=== PATIENT | male | born 1950 | race Caucasian/White ===

== ENCOUNTER 2022-11-06 15:22 | Observation (INO) | payer OTHER, SELFPAY ==
[2022-11-06] VITALS (11 sets, daily range): BP systolic 83–99; BP diastolic 57–67; PULSE 69–90; RESP 12–18; TEMP 36.3–36.8; O2SAT 98–100; BMI 24.0
--- NOTE | 2022-11-06 15:35 | W.ED.GENADLT ---
HPI - General Adult General: Chief complaint: General Medical Stated complaint: hypotension Time Seen by Provider: 11/06/22 15:24 Source: EMS Mode of arrival: EMS History of Present Illness: History is of limited to that which is obtained from EMS and [facility]. Allegedly the patient is on hospice. He apparently also gets daily medications for blood pressure and fluid control. He apparently had a systolic blood pressure in the 105 range earlier today and was subsequently given his usual medications and had a blood pressure taken later on the day which was in the 80-90 systolic range and EMS was notified. He was transported to the emergency department. No history is obtained from the patient at this time. I was able to place a call to the long-term care facility and staff there were able to provide additional illuminating information. They state that he is normally pretty functional and active and they are unsure actually why he is on hospice status as he remains a full code. They state that he has had a number of falls over the past week or more and they are uncertain whether he is hit his head but he has not had any changes up until the last 24 hours when he has had decreased mental status in terms of responsiveness, oral intake. His who rooms with him noted that he had changed and contacted her and his family who recommended and requested that he be transported to the emergency department for further evaluation. There is no history of fevers or other additional information at this time. Review of Systems General: Reports: ROS unobtainable due to medical condition Physical Exam Narrative: EXAM NARRATIVE: Patient will open eyes to voice and answer simple questions with yes or no and a very faint voice. He appears to be in no acute distress. 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) Resp: COMMON NORMALS: normal respiratory effort, No retractions, No use of accessory muscles and clear to auscultation bilaterally AUSCULTATION: clear to auscultation bilaterally and diminished lung sounds Cardio: COMMON NORMALS: no JVD, regular rate, regular rhythm and No murmurs present (Cardio) RATE: regular rate RHYTHM: regular rhythm GI: COMMON NORMALS: Normal to inspection, nondistended, normoactive bowel sounds present, Soft to palpation and non-tender PALPATION: Yes Soft to palpation Back/Pelvis: COMMON NORMALS: thoracic and lumbar spine normal to inspection Extremity: COMMON NORMALS: normal to inspection, full ROM, capillary refill normal and no pedal edema Neuro: SENSORIUM/ORIENTATION: Yes alert Skin: COMMON NORMALS: no rashes or lesions noted, no wounds and turgor normal GENERAL SKIN EXAM: no rashes or lesions noted and turgor normal Course Reevaluation(s): Reevaluation #1: Patient's received a liter of fluids and is more alert and responsive. He has started drinking on his own. Also noted that he has had some purulent sputum produced since our last evaluation however he has no evidence of respiratory difficulty but he does have diminished breath sounds at the bases. Time: 18:28 Consultations: Consultation #1: Discussed with Dr. Gonzalez who will see him in the emergency department Time: 19:13 Vital Signs: Vital signs: Vital Signs Temperature 98.2 F 11/06/22 15:27 Pulse Rate 71 11/06/22 19:42 Respiratory Rate 12 11/06/22 19:42 Blood Pressure 92/64 11/06/22 19:42 Pulse Oximetry 100 11/06/22 19:42 Oxygen Delivery Me thod Room Air 11/06/22 15:32 MDM - General Adult Medical Decision Making This patient was transported to our emergency department .From [facility]. Initially we had very limited history that he the initial history was that he was on hospice but was a full code and has had decreased decreased activity over the past day or so. Subsequently a conversation was had with [facility] facility staff who reported that he was normally very vigorous and active and interactive and over the past 2 to 3 days he has become less so and more so even today. There is also a history that suggested he had a couple of ground-level falls with possible head injury. He does have a history of heart failure by chart review but we have no past records within our system to collaborate any of his history. On initial presentation he appeared to be very dry he would respond to loud voice with eye opening with minimal verbalization. Medical exam reveals some decreased skin turgor and deep diminished breath sounds but no other focal findings. Because of his history a work-up ensued broadened after additional history was obtained. Imaging did not reveal any evidence of intracranial hemorrhage or other acute intracranial process. Chest x-ray was reassuring without any evidence of infiltrative process. Laboratories began to return and were notable for significant BUN/creatinine ratio consistent with acute kidney injury however no previous creatinines were available for comparison. He received the benefit of fluid resuscitation while additional studies pending. After liter of fluids he was reexamined still was very soft on his systolic blood pressure but had increasing responsiveness to voice and interacted and is able to start drinking on his own. Certainly patient's had significant volume depletion of unclear etiology although he does take diuretics and antihypertensives on his regimen from the long-term [facility] facility and its unclear as to his oral intake over the past number of days. At this point time does not appear to have any evidence of infection, his rhythm is paced and he does not have any other suggestion of other acute process at this time. He will need to be placed in inpatient status for continued hydration and reevaluation. Hospitalist was able to find additional information that letter she had of the light on the case. Apparently the patient has a history of chronic kidney disease and his current presentation may be a natural progression of his disease. Lab Data I reviewed the patient's lab results. 11/06/22 15:05 11/06/22 15:[address] 11/06/22 15:48 IMPRESSION: No acute intracranial abnormality. Chronic microvascular ischemic changes. Chest X-Ray 11/06/22 16:49 IMPRESSION: No acute findings. Intact appearing pacemaker/AICD hardware. Laboratory Results WBC 6.70 10^3/uL (3.29-11.43) 11/06/22 15:05 RBC 4.64 10^6/uL (3.85-5.65) 11/06/22 15:05 Hgb 12.90 g/dL (11.27-16.99) 11/06/22 15:05 Hct 39.1 % (37-53) 11/06/22 15:05 MCV 84.3 fl (82-101) 11/06/22 15:05 MCH 27.8 pg (27-33) 11/06/22 15:05 MCHC 33.0 g/dL (30-55) 11/06/22 15:05 RDW 17.7 % (12.1-15.1) H 11/06/22 15:05 Plt Count 269 10^3/cmm (157-399) 11/06/22 15:05 MPV 9.2 fL (7.4-10.4) 11/06/22 15:05 Neut % (Auto) 73.9 % 11/06/22 15:05 Lymph % (Auto) 6.3 % 11/06/22 15:05 [place] % (Auto) 15.1 % 11/06/22 15:05 Eos % (Auto) 3.6 % 11/06/22 15:05 Baso % (Auto) 0.7 % 11/06/22 15:05 Neut # (Auto) 4.95 10^3/uL (1.8-7.7) 11/06/22 15:05 Lymph # (Auto) 0.4 10^3/uL (0.8-4.8) L 11/06/22 15:05 [place]idan # (Auto) 1.0 10^3/uL (0.2-0.9) H 11/06/22 15:05 Eos # (Auto) 0.2 10^3/uL (0.0-0.8) 11/06/22 15:05 Baso # (Auto) 0.1 10^3/uL (0.0-0.1) 11/06/22 15:05 Nucleated RBC % (auto) 0 % 11/06/22 15:05 Nucleated RBCs # 0.0 /100WBC 11/06/22 15:05 Sodium 135 mmol/L (136-145) L 11/06/22 15:05 Potassium 5.5 mmol/L (3.5-5.1) H 11/06/22 15:05 Chloride 98 mmol/L (98-107) 11/06/22 15:05 Carbon Dioxide 16 mmol/L (22-29) L 11/06/22 15:05 Anion Gap 26.5 (5-19) H 11/06/22 15:05 BUN 102 mg/dL (8-23) H* 11/06/22 15:05 Creatinine 5.7 mg/dL (0.7-1.2) H* 11/06/22 15:05 GFR Calculation Not Reportable 11/06/22 15:05 Glucose 73 mg/dL (65-115) 11/06/22 15:05 Calculated Osmolality 310 mOsm/kg (285-295) H 11/06/22 15:05 Calcium 10.8 mg/dL (8.5-10.5) H 11/06/22 15:05 Magnesium 2.2 mg/dL (1.7-2.3) 11/06/22 15:05 Ammonia 10 umol/L (16-60) L 11/06/22 17:07 Urine Color Yuli (Yellow) 11/06/22 17:19 Urine Appearance Clear (CLEAR) 11/06/22 17:19 Urine pH 5 (5-7) 11/06/22 17:19 Ur Specific [place] 1.020 (1.005-1.030) 11/06/22 17:19 Urine Protein 1+ (Negative) H 11/06/22 17:19 Urine Glucose (UA) Norm (Normal) 11/06/22 17:19 Urine Ketones 1+ (Negative) H 11/06/22 17:19 Urine Blood 2+ (Negative) H 11/06/22 17:19 Urine Nitrate Negative (Negative) 11/06/22 17:19 Urine Bilirubin 1+ (Negative) H 11/06/22 17:19 Urine Urobilinogen 1 mg/dL (Negative) H 11/06/22 17:19 Ur Leukocyte Esterase Negative (Negative) 11/06/22 17:19 Urine RBC Rare /hpf (0-2) 11/06/22 17:19 Urine WBC Rare /hpf (0-5) 11/06/22 17:19 Ur Squamous Epith Cells 5-10 /hpf (0-5) H 11/06/22 17:19 Amorphous Sediment Not Reportable 11/06/22 17:19 Urine Bacteria Trace /hpf (NONE) 11/06/22 17:19 Salicylates 1.1 mg/dL (3-10) L 11/06/22 15:05 Acetaminophen < 5.0 ug/mL (10-30) L 11/06/22 15:05 Ethyl Alcohol < 10 mg/dL (0-10) 11/06/22 15:05 All radiology interpretation(s) finalized by discharge Discharge Plan Discharge Patient Disposition: Admitted As Inpatient Clinical Impression: Acute kidney injury, Depletion of volume of plasma, CKD (chronic kidney disease) Condition: Stable Coding Level of Care Code ED Safety And Security Officer for Pilar Jordan
[2022-11-06 15:46] LABS: Basophils # 0.1 10^3/uL (0.0-0.1); Basophils % 0.7 %; Eosinophils # 0.2 10^3/uL (0.0-0.8); Eosinophils % 3.6 %; Hematocrit 39.1 % (37-53); Lymphocytes # 0.4 10^3/uL (0.8-4.8); Lymphocytes % 6.3 %; Mean Corpuscular Hemoglobin 27.8 pg (27-33); Mean Corpuscular Volume 84.3 fl (82-101); Mean Platelet Volume 9.2 fL (7.4-10.4); Monocytes % 15.1 %; Neutrophils # 4.95 10^3/uL (1.8-7.7); Neutrophils % 73.9 %; Nucleated Red Blood Cells % 0 %; Platelet Count 269 10^3/cmm (157-399); Red Blood Count 4.64 10^6/uL (3.85-5.65); Red Cell Distribution Width 17.7 % (12.1-15.1)
--- NOTE | 2022-11-06 15:48 | CTR_ITS ---
PROCEDURE INFORMATION: Exam: CT Head Without Contrast Exam date and time: 11/06/2022 3:58 PM Age: 72 years old Clinical indication: Altered mental status/memory loss; Confusion or disorientation; Additional info: AMS TECHNIQUE: Imaging protocol: Computed tomography of the head without contrast. Radiation optimization: All CT scans at this facility use at least one of these dose optimization techniques: automated exposure control; mA and/or kV adjustment per patient size (includes targeted exams where dose is matched to clinical indication); or iterative reconstruction. REPORTING DATA: Count of CT and Cardiac NM exams in prior 12 months: This patient has received 0 known CTs and 0 known cardiac nuclear medicine studies in the 12 months prior to the current study. COMPARISON: No relevant prior studies available. RADIATION DOSE METRICS: Total DLP (mGy-cm): 1097.38 FINDINGS: Brain: Encephalomalacia in the left frontal lobe.There are mild periventricular and subcortical lucencies consistent with chronic microvascular ischemic changes.The higuera-white differentiation is maintained. No hemorrhage. No edema. Cerebral ventricles: No ventriculomegaly. Paranasal sinuses: Visualized sinuses are unremarkable. No fluid levels. Mastoid air cells: Visualized mastoid air cells are well aerated. Orbital cavities: Bilateral cataract surgery. Bones/joints: Unremarkable. No acute fracture. Soft tissues: Unremarkable. CT/CT head wo con* [id number] IMPRESSION: No acute intracranial abnormality. Chronic microvascular ischemic changes.
--- NOTE | 2022-11-06 15:58 | PC.PHAR ---
ATTEMPTED TO GET MAR AND TAR FROM [facility] WHO STATED THE DOCTOR ALREADY HAD THE LIST AND THEY WENT OVER SOME OF THE MEDICATIONS. PAPERWORK NOT IN CHART OR IN ROOM WITH PT.
[2022-11-06 16:06] LABS: Anion Gap 26.5 (5-19); Calcium 10.8 mg/dL (8.5-10.5); Carbon Dioxide 16 mmol/L (22-29); Chloride 98 mmol/L (98-107); Glucose 73 mg/dL (65-115); Magnesium 2.2 mg/dL (1.7-2.3); Osmolality Calculated 310 mOsm/kg (285-295); Potassium 5.5 mmol/L (3.5-5.1); Sodium 135 mmol/L (136-145)
[2022-11-06 16:11] LABS: Blood Urea Nitrogen 102 mg/dL (8-23)
--- NOTE | 2022-11-06 16:49 | XRR_ITS ---
PROCEDURE INFORMATION: Exam: XR Chest Exam date and time: 11/06/2022 4:56 PM Age: 72 years old Clinical indication: Cough and dyspnea; Prior surgery; Surgery date: 6+ months; Surgery type: Pacemaker; Additional info: AMS TECHNIQUE: Imaging protocol: Radiologic exam of the chest. Views: 1 view. COMPARISON: No relevant prior studies available. FINDINGS: Tubes, catheters and devices: There is intact pacemaker/AICD hardware. Lungs: Unremarkable. No consolidation. Pleural spaces: Unremarkable. No pleural effusion. No pneumothorax. Heart/Mediastinum: Unremarkable. No cardiomegaly. Bones/joints: Unremarkable. XR/XR chest 1V portable [id number] IMPRESSION: No acute findings. Intact appearing pacemaker/AICD hardware.
[2022-11-06 17:13] LABS: Salicylate 1.1 mg/dL (3-10)
[2022-11-06 17:16] LABS: Acetaminophen < 5.0 ug/mL (10-30); Alcohol Level < 10 mg/dL (0-10)
[2022-11-06 17:33] LABS: Ammonia 10 umol/L (16-60)
[2022-11-06 18:18] LABS: Add Urine Microscopic? YES; Bacteria Urine TRACE /hpf; Bilirubin Urine 1+ (Negative); Blood Urine 2+ (Negative); Glucose Urine UA Norm (Normal); Ketones Urine 1+ (Negative); Leukocyte Esterase Urine Negative (Negative); Nitrate Urine Negative (Negative); Protein Urine 1+ (Negative); RBC Urine RARE /hpf (0-2); Urine Appearance Clear (CLEAR); Urine Color Amber (Yellow); Urobilinogen Urine 1 mg/dL (Negative); WBC Urine RARE /hpf (0-5); pH Urine 5 (5-7)
[2022-11-06 18:19] LABS: Add Urine Culture? No
[2022-11-06] MEDS: sodium chloride 0.9% 1,000 ML 999 ML IV (18:43)
--- NOTE | 2022-11-06 19:18 | ECG_ITS ---
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 Measurements Intervals [place] Rate: 69 P: 0 [place]: 0 QRS: -90 QRSD: 261 T: 99 QT: 619 QTc: 667 Interpretive Statements ELECTRONIC VENTRICULAR PACEMAKER PROLONGED QT INTERVAL No previous ECG available for comparison Electronically Signed On 11-07-2022 9:38:11 CDT by Antonio Giordano M.D. [email or web address]
--- NOTE | 2022-11-06 19:36 | CTR_ITS ---
PROCEDURE INFORMATION: Exam: CT Chest Without Contrast; Diagnostic Exam date and time: 11/06/2022 7:53 PM Age: 72 years old Clinical indication: Other: Marcus; Dyspnea and wheezing; Prior surgery; Surgery date: 6+ months; Surgery type: Pacemaker, gb; Additional info: Marcus, labored breathing, wheezing TECHNIQUE: Imaging protocol: Diagnostic computed tomography of the chest without contrast. Radiation optimization: All CT scans at this facility use at least one of these dose optimization techniques: automated exposure control; mA and/or kV adjustment per patient size (includes targeted exams where dose is matched to clinical indication); or iterative reconstruction. REPORTING DATA: Count of CT and Cardiac NM exams in prior 12 months: This patient has received 0 known CTs and 0 known cardiac nuclear medicine studies in the 12 months prior to the current study. COMPARISON: CR (CHEST, ) 11/06/2022 4:56 PM RADIATION DOSE METRICS: Total DLP (mGy-cm): 0.01 FINDINGS: Tubes, catheters and devices: Right-sided pacemaker. Lungs: Bibasilar left greater than right atelectasis versus infiltrate. Emphysematous changes. Pleural spaces: Unremarkable. No pneumothorax. No pleural effusion. Heart: Cardiomegaly. Coronary arteries: Coronary artery atherosclerotic calcifications. Lymph nodes: Enlarged mediastinal lymph nodes measuring up to 17 mm. Vasculature: Unremarkable. No aortic aneurysm. Bones/joints: Unremarkable. No acute fracture. Soft tissues: Unremarkable. COMMENTS: In the absence of a history or active diagnosis of lung cancer, it is recommended that this patient with emphysema be evaluated for enrollment in a low dose CT lung cancer screening program. PROCEDURE INFORMATION: Exam: CT Abdomen And Pelvis Without Contrast Exam date and time: 11/06/2022 7:53 PM Age: 72 years old Clinical indication: Other: Marcus; Dyspnea and wheezing; Prior surgery; Surgery date: 6+ months; Surgery type: Pacemaker, gb; Additional info: Marcus, labored breathing, wheezing TECHNIQUE: Imaging protocol: Computed tomography of the abdomen and pelvis without contrast. Radiation optimization: All CT scans at this facility use at least one of these dose optimization techniques: automated exposure control; mA and/or kV adjustment per patient size (includes targeted exams where dose is matched to clinical indication); or iterative reconstruction. REPORTING DATA: Count of CT and Cardiac NM exams in prior 12 months: This patient has received 0 known CTs and 0 known cardiac nuclear medicine studies in the 12 months prior to the current study. COMPARISON: CR (CHEST, ) 11/06/2022 4:56 PM RADIATION DOSE METRICS: Total DLP (mGy-cm): 1063.28 FINDINGS: Liver: Normal. No mass. Gallbladder and bile ducts: Cholecystectomy. Pancreas: Normal. No ductal dilation. Spleen: Normal. No splenomegaly. Adrenal glands: Normal. No mass. Kidneys and ureters: Normal. No hydronephrosis. Stomach and bowel: Constipation. Diverticulosis without diverticulitis. Appendix: No evidence of appendicitis. Intraperitoneal space: Unremarkable. No free air. No significant fluid collection. Vasculature: Unremarkable. No abdominal aortic aneurysm. Lymph nodes: Unremarkable. No enlarged lymph nodes. Urinary bladder: Salas catheter in the urinary bladder with air presumed iatrogenic. Reproductive: Prostate gland enlarged. Bones/joints: Unremarkable. No acute fracture. Soft tissues: Small to moderate umbilical hernia containing omentum without bowel. CT/[place] [id number] IMPRESSION: 1. Bibasilar left greater than right atelectasis versus infiltrate. 2. Right-sided pacemaker. 3. Coronary artery atherosclerotic calcifications. 4. Enlarged mediastinal lymph nodes measuring up to 17 mm. 5. Cardiomegaly. 6. Emphysematous changes. IMPRESSION: 1. Negative for focal acute inflammatory process in the abdomen or pelvis. 2. Cholecystectomy. 3. Constipation. 4. Small to moderate umbilical hernia containing omentum without bowel. 5. Diverticulosis without diverticulitis. 6. Salas catheter in the urinary bladder with air presumed iatrogenic. 7. Prostate gland enlarged.
[2022-11-06] MEDS: sodium chloride 0.9% 1,000 ML 75 ML IV (20:06)
--- NOTE | 2022-11-06 20:11 | PM.HP ---
Providers/Chief Complaint Chief Complaint: hypotension History of Present Illness Mitesh Wing is a 72 year old male with a past medical history of end-stage heart failure, CKD stage IV, CVA with dysphagia, CAD, atrial fibrillation, currently on hospice at [facility] residential, currently patient alert to person, to place, not to time he can follow commands but is a bit confused. When asked him why he is here to the hospital he tells me he is not sure, he denies any complaints, no headache, no blurry vision, no nausea, vomiting, abdominal pain he is thirsty he tells me, he has had a poor appetite he has lost weight but is not exactly sure how much, he denies passing out, but did fall about a week ago, is not exactly sure of the circumstances surrounding his fall, currently he is blood pressure was 97/64, pulse is 70 respiratory rate 14 temperature 98.2 100s on room air, he has received fluid bolus. I was able to speak to [facility], he tells me that patient is normally ambulatory, he does have some mild dementia, but can carry a conversation he lives at [facility] with his who is his roommate who has severe dementia, they tell me that he is not been having a good appetite, his appetite is decreased, he has been losing weight, but what prompted them to send him to the emergency room tonight was he was not acting appropriately, he was looking pale, diaphoretic, and his blood pressures were low. I reviewed his vitals his systolics were in the room the 90s, diastolics were in the 60s, he was not tachycardic, it looks like since August of this year he is lost about 50 pounds. Patient can confirm that he has end-stage renal failure he knows this. He knows that he is end-stage heart failure. I also spoke to patient's daughter, who confirmed that he has end-stage heart failure, he has end-stage kidney failure that over the last few months his condition has been declining, he has been not eating, he had a poor appetite, he said poor oral intake, he has been losing weight. I discussed with patient that currently he has acute renal failure, I do not know his baseline labs, has CKD stage IV for some period of time it could be that the labs that were seeing today are a reflection of his progressive kidney disease, he is possibly progressed to stage V kidney disease. But there might be a component of dehydration, his CPK is over thousand so he has a component of rhabdomyolysis. I discussed options available to patient, including sending [facility] back [facility] the [place] [facility] on his hospice which he is already on for his heart failure and his kidney disease versus a inpatient admission for IV hydration to see if his kidney function improves, and if it does improve, then we can certainly send him back to the residential, if it does not improve then this is likely his underlying chronic kidney disease worsening. Nonetheless patient is adamant he does not want dialysis. I discussed his goals of cares with him, he tells me he is a DNR/DNI, he does not want to have aggressive interventions. I also spoke to patient's healthcare power of patent prosecution attorney Kirti, who confirms that patient is a DNR/DNI and he is never wanted dialysis. I did discuss with patient and his daughter that there is a chance that he might here in the hospital given his low blood pressures, and still working on the etiology could be from dehydration, but if he were to deteriorate here in the hospital, patient and family are okay with making him comfortable easing his pain easing suffering and allow him to pass away comfortably they do not want to have aggressive interventions. However patient did verbalize to me that he wants a trial of fluids, trial of simple measures to see if we can get his kidney function better and his blood pressure is better, but he does not want to have aggressive interventions, he does not want to have life-sustaining measures. Review of Systems Const: Denies: fever(s) Eyes: Denies: change in vision Card: Denies: chest pain Resp: Denies: dyspnea GI: Denies: abdominal pain, nausea or vomiting : Denies: flank pain Musc: Denies: neck pain or back pain Skin/Breast: Denies: rash Neuro: Denies: headache(s), numbness in extremities or weakness in extremities Endo: Denies: polyuria PFSH Acute PFSH: Medical History (Updated 11/06/22 @ 21:09 by Moy Boston MD) Atrial fibrillation CAD (coronary artery disease) CKD (chronic kidney disease) stage 4, GFR 15-29 ml/min CVA (cerebral vascular accident) Dysphagia as late effect of cerebral aneurysm End-stage systolic heart failure History of pacemaker Sick sinus syndrome Surgical History (Updated 11/06/22 @ 20:14 by Moy Boston MD) S/P placement of cardiac pacemaker Family History (Updated 11/06/22 @ 20:14 by Moy Boston MD) Other No pertinent family history Social History (Updated 11/06/22 @ 20:14 by Moy Boston MD) Smoking and tobacco status: never smoked Alcohol intake: never Substance/Drug Use: never Vitals/I&O/Wt Last Vital Signs Temp 98.2 F 11/06/22 15:27 Pulse 71 11/06/22 19:42 Resp 12 11/06/22 19:42 BP 92/64 11/06/22 19:42 Pulse Ox 100 11/06/22 19:42 O2 Del Method Room Air 11/06/22 15:32 11/06/22 11/06/22 11/06/22 06:59 14:59 22:59 Intake Total 1000 / 1000 Balance 1000 / 1000 Weight last 48 hrs Weight 82.554 kg Physical Exam Const: COMMON NORMALS: no acute distress EXAM LIMITATIONS: altered mental status ORIENTATION/CONSCIOUSNESS: Yes awake, Yes oriented to person and Yes oriented to place; not oriented to time HENMT: COMMON NORMALS: normocephalic and Normal external nose present HEAD & SCALP: normocephalic FACE & SINUS: normal facial exam NOSE: Normal external nose present Eye: COMMON NORMALS: Equal, round and reactive pupils present, conjunctivae normal and no scleral icterus CONJUNCTIVA: Yes conjunctivae normal PUPIL: Yes Equal, round and reactive pupils present Neck/C-Spine: COMMON NORMALS: full ROM, no lymphadenopathy and No carotid bruits THYROID: Thyroid normal Lymph: LYMPHATIC: no lymphadenopathy noted Chest: COMMONS NORMALS: normal inspection of the chest Resp: COMMON NORMALS: normal respiratory effort, No retractions and No use of accessory muscles AUSCULTATION: wheezes Cardio: COMMON NORMALS: regular rate, regular rhythm, S1 normal heart sound present, S2 normal heart sound present, No murmurs present (Cardio) and Peripheral pulses 2+ throughout RATE: regular rate RHYTHM: regular rhythm HEART SOUNDS: S1 normal heart sound present and S2 normal heart sound present PERIPHERAL PULSES: Peripheral pulses 2+ throughout GI: COMMON NORMALS: Normal to inspection, nondistended, normoactive bowel sounds present, Soft to palpation and non-tender : BLADDER/KIDNEY EXAM: Yes no CVA tenderness Back/Pelvis: COMMON NORMALS: no CVA tenderness Extremity: COMMON NORMALS: normal to inspection, full ROM, capillary refill normal, no calf tenderness and no pedal edema Neuro: COMMON NORMALS: CN's II-XII intact bilaterally and moves all extremities Psych: COMMON NORMALS: cooperative Sepsis: Focused sepsis exam: dp pt pulses diminished bilaterally, capillary refill>4s, pale extremities Evidence of muscle wasting, temporal muscle wasting, peripheral extremity muscle wasting including bilateral shoulders, arms, bilateral thighs, bilateral calves Data 11/06/22 15:05 11/06/22 15:05 A&P Assessment and plan (1) Dysphagia as late effect of cerebral aneurysm: (2) CAD (coronary artery disease): (3) CVA (cerebral vascular accident): (4) End-stage systolic heart failure: (5) Atrial fibrillation: (6) CKD (chronic kidney disease) stage 4, GFR 15-29 ml/min: (7) Acute kidney injury: (8) Depletion of volume of plasma: (9) CKD (chronic kidney disease): (10) ARF (acute renal failure): (11) Hypotension: (12) Encephalopathy: (13) Hyperkalemia: (14) Uremia: (15) Protein calorie malnutrition: (16) Physical deconditioning: (17) Cachexia: (18) Hospice care patient: (19) Goals of care, counseling/discussion: (20) NSTEMI (non-ST elevated myocardial infarction): Plan Acute renal failure -Has chronic kidney failure stage IV, but this was a few years ago, family is unsure when his last lab results were -His current BUN/creatinine might be his new baseline -But he has had poor appetite, for the last 2 months, last 24 hours he has diminished intake there could be a component of dehydration -IV fluids gently at 75 cc an hour, given his end-stage heart failure -We will get a CPK as he fell a few weeks ago -Monitor urine output -Patient declines dialysis, patient's family Kirti his healthcare power of patent prosecution attorney declines dialysis - if patient's uremia, and creatinine does not improve with IV hydration, patient and family are okay with him going back to the residential on resuming his hospice, or he might need comfort care depending on his clinical progress here in the hospital Uremia -Likely source of confusion -Likely source of poor oral intake, weight loss -IV hydration -Patient declines dialysis Hypotension -Etiology unclear could be from uremia, acute renal failure, dehydration, lactic acid within normal limits -CT chest abdomen pelvis -Lactic acid -Possible second dehydration, IV fluids, midodrine 10 every 8 hours -CRP, Pro-Martin Hypokalemia -Telemetry monitoring -10 units insulin, D50 Metabolic acidosis, secondary to acute on chronic renal failure, IV fluids, p.o. sodium bicarb Of the chest does show bibasilar infiltrates, Pro-Martin 0.69, CRP is over 280, will place on Rocephin and azithromycin Physical deconditioning, protein calorie malnutrition, muscle wasting, likely secondary to acute renal failure, uremia Rhabdomyolysis, CPK 1092, IV fluids NSTEMI, baseline troponin 114, serial EKGs, short ones, telemetry monitoring Hospice patient, DNR/DNI, does not want to have aggressive inventions, wants a trial of IV fluids, trial of antibiotics, to see if his condition improves -Speech therapy eval, dietary eval Goals of care discussion as above Attestations Medical Necessity Statement*: patient requires hospitalization for end-stage renal disease, dialysis, protein calorie malnutrition, physical deconditioning, cachexia, hypotension, encephalopathy, Diagnoses Dysphagia as late effect of cerebral aneurysm I69.891 CAD (coronary artery disease) I25.10 CVA (cerebral vascular accident) I63.9 End-stage systolic heart failure I50.20 Atrial fibrillation I48.91 CKD (chronic kidney disease) stage 4, GFR 15-29 ml/min N18.4 Acute kidney injury N17.9 Depletion of volume of plasma E86.1 CKD (chronic kidney disease) N18.9 ARF (acute renal failure) N17.9 Hypotension I95.9 Encephalopathy G93.40 Hyperkalemia E87.5 Uremia N19 Protein calorie malnutrition E46 Physical deconditioning R53.81 Cachexia R64 Hospice care patient Z51.5 Goals of care, counseling/discussion Z71.89 NSTEMI (non-ST elevated myocardial infarction) I21.4
[2022-11-06 20:20] LABS: Lactic Sepsis W/Reflex 1.2 mmol/L (0.5-2.2)
[2022-11-06 20:26] LABS: Procalcitonin 0.69 ng/mL (0-0.5); Thyroid Stimulating Hormone 0.42 uIU/mL (0.27-4.20)
[2022-11-06 20:34] LABS: Troponin(5th) Baseline 114 ng/L (0-15)
[2022-11-06 20:39] LABS: Alanine Aminotransferase < 5 U/L (0-41); Albumin Level 3.2 g/dL (3.5-5.2); Alkaline Phosphatase 82 U/L (40-130); Aspartate Amino Transferase 27 U/L (0-40); C Reactive Protein 279.6 mg/L (0.0-4.9); Globulin 2.9 g/dL (1.3-4.6); Lipase 23 U/L (13-60); Total Bilirubin 0.8 mg/dL (0.15-1.2); Total Protein 6.1 g/dL (6.6-8.7)
[2022-11-06 20:41] LABS: Creatine Phosphokinase 1092 U/L (39-308)
[2022-11-06 20:48] LABS: NT Pro B Type Natriuretic Pept 43929 pg/mL (0-125)
[2022-11-06 21:28] LABS: Estmated Average Glucose 94; Hemoglobin A1C 4.9 % (4.0-6.0)
[2022-11-06] MEDS: heparin 5,000 unit/mL INJ 1 mL 5000 UNIT SUBCUT (22:40)
[2022-11-06] MEDS: azithromycin 500 MG in sodium chloride 0.9% 250 ML 250 MG IV (22:44)
[2022-11-06] MEDS: dextrose 50% syringe 50 mL IVP (23:28)
[2022-11-06] MEDS: dextrose 5%-sod chloride 0.9% 1,000 ML 100 ML IV (23:28)
[2022-11-06] MEDS: insulin regular-human 100 units/1 mL 10 UNIT IVP (23:31)
[2022-11-07] VITALS (7 sets, daily range): BP systolic 80–97; BP diastolic 55–62; PULSE 69–88; RESP 15–18; TEMP 35.9–36.5; O2SAT 93–100
[2022-11-07] MEDS: cefTRIAXone 1,000 MG in sodium chloride 0.9% (plus) 50 ML 100 MG IV (00:13)
[2022-11-07] MEDS: pantoprazole 40 mg SDV IVP (00:19)
[2022-11-07 00:31] LABS: Glucose Point of Care 141 mg/dL (70-110)
[2022-11-07] MEDS: sodium chloride 0.9% 500 ML 999 ML IV (00:44)
[2022-11-07] MEDS: midodrine 5 mg TABLET 10 MG PO (00:45)
[2022-11-07 01:30] LABS: Glucose Point of Care 73 mg/dL (70-110)
[2022-11-07 02:07] LABS: Basophils % 0.6 %; Eosinophils # 0.2 10^3/uL (0.0-0.8); Eosinophils % 3.7 %; Hematocrit 31.9 % (37-53); Lymphocytes # 0.3 10^3/uL (0.8-4.8); Lymphocytes % 5.7 %; Mean Corpuscular Hemoglobin 27.9 pg (27-33); Mean Corpuscular Volume 87.2 fl (82-101); Mean Platelet Volume 8.7 fL (7.4-10.4); Monocytes # 0.8 10^3/uL (0.2-0.9); Monocytes % 16.4 %; Neutrophils # 3.71 10^3/uL (1.8-7.7); Neutrophils % 73.2 %; Nucleated Red Blood Cells % 0 %; Platelet Count 206 10^3/cmm (157-399); Red Blood Count 3.66 10^6/uL (3.85-5.65); Red Cell Distribution Width 17.6 % (12.1-15.1); White Blood Count 5.07 10^3/uL (3.29-11.43)
[2022-11-07 02:26] LABS: Alanine Aminotransferase < 5 U/L (0-41); Albumin Level 3.1 g/dL (3.5-5.2); Alkaline Phosphatase 77 U/L (40-130); Anion Gap 18.5 (5-19); Aspartate Amino Transferase 23 U/L (0-40); Calcium 9.4 mg/dL (8.5-10.5); Carbon Dioxide 19 mmol/L (22-29); Chloride 104 mmol/L (98-107); Globulin 2.6 g/dL (1.3-4.6); Glucose 87 mg/dL (65-115); Osmolality Calculated 314 mOsm/kg (285-295); Phosphorus 3.8 mg/dL (2.5-4.5); Potassium 4.5 mmol/L (3.5-5.1); Sodium 137 mmol/L (136-145); Total Bilirubin 0.7 mg/dL (0.15-1.2); Total Protein 5.7 g/dL (6.6-8.7)
[2022-11-07 02:29] LABS: Blood Urea Nitrogen 98 mg/dL (8-23)
--- NOTE | 2022-11-07 04:48 | ECG_ITS ---
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 Measurements Intervals [place] Rate: 86 P: 0 WA: 0 QRS: 2 QRSD: 230 T: 139 QT: 519 QTc: 622 Interpretive Statements ELECTRONIC VENTRICULAR PACEMAKER PROLONGED QT INTERVAL Compared to ECG 11/06/2022 20:10:12 No significant changes Electronically Signed On 11-07-2022 9:41:17 CDT by Antonio Giordano M.D. [id number]
[2022-11-07] MEDS: heparin 5,000 unit/mL INJ 1 mL 5000 UNIT SUBCUT (09:14)
--- NOTE | 2022-11-07 09:33 | P.DS_ITS ---
Discharge Providers Date of Admission: 11/06/22 20:27 Date of Discharge: November 07, 2022 Attending Provider at Admission: Moy Boston MD Attending Provider at Discharge: Jameson Levin DO Diagnoses at Discharge Discharge Diagnosis (1) Acute kidney injury: Status: Acute (2) Rhabdomyolysis: Status: Acute (3) Depletion of volume of plasma: Status: Acute (4) Dysphagia as late effect of cerebral aneurysm: Status: Acute (5) CKD (chronic kidney disease): Status: Acute (6) End-stage systolic heart failure: Status: Acute (7) CKD (chronic kidney disease) stage 4, GFR 15-29 ml/min: Status: Acute (8) CAD (coronary artery disease): Status: Acute (9) CVA (cerebral vascular accident): Status: Acute (10) Atrial fibrillation: Status: Acute (11) ARF (acute renal failure): Status: Acute (12) Hypotension: Status: Acute (13) Encephalopathy: Status: Acute (14) Hyperkalemia: Status: Acute (15) Uremia: Status: Acute (16) Protein calorie malnutrition: Status: Acute (17) Physical deconditioning: Status: Acute (18) Cachexia: Status: Acute (19) Hospice care patient: Status: Acute (20) Goals of care, counseling/discussion: Status: Acute (21) NSTEMI (non-ST elevated myocardial infarction): Status: Acute Reason for Visit Reason for Visit: hypotension Brief History: Patient resides at [facility] on hospice [facility] for the diagnosis of end-stage congestive heart failure. [facility] requested transfer to the ED for hypotension and not acting appropriately, he was looking pale, diaphoretic his blood pressure was approximately 90/60. [facility] called Dr. Calderon who was agreeable for transfer hospital they informed hospice [facility] and the daughter. Hospital Course Hospital Course Patient was seen in the emergency room at that time he had no complaints. He does report weight loss and poor appetite. He reported a fall about a week ago. Patient wished to be DNR. Aggressive interventions. Despite being on hospice and the above decision patient was placed in observation and placed on IV fluids for rhabdo myelitis's and possible acute on chronic kidney failure. We do not have old labs to compare to. Upon review of chart, speaking with Lissy at [facility] unit Dilan steiner from hospice [facility] and the patient's daughter Kirti, I suspect what has caused the acute change is due to the fall 1 week ago. He likely sustained tissue breakdown resulting in rhabdo myelitis which then affected the kidneys and while they continued blood pressure medicines when his blood pressure was soft but continued to decline and without any reserve his altered mental status. He has been described to both just see the hospice nurse implementation architect as well as daughter Kirti. Fortunate that patient was doing so well prior and still leaving the facility weekly with his daughter. Currently patient has end-stage CHF and age renal disease. Giving the patient fluids will cause worsening of CHF and without fluids or treating the kidneys his kidneys will continue to fail. I asked suspect the patient experienced a sentinel event that will be the cause of the patient having severe end-stage comorbidities inability to compensate. And explained to both Dilan with hospice [facility] as well as sudha ter I will let [facility] know as well. Recommend the following: * Stop metoprolol * Follow patient clinically and use Lasix only if severely short of breath and auscultating wheezes or rales. * Change patient's status to DNR/DNI * Comfort diet * Activity as tolerated * I asked hospice to consider assisting daughter and her twin boys to have 10th birthday with her dad at [facility]. * Stop any other meds that is not necessary for comfort. * Turn off defibrillator Physical Exam Narrative: Elderly thin frail cachectic appearing white male in no acute distress at time of exam Heart: Regular normal S1-S2 Lungs: Severely diminished a few crackles at the bases. Abdomen: Soft nontender nondistended positive bowel sounds Extremities: No clubbing cyanosis or edema Discharge Data Studies Completed and Pending Completed Studies During Hospitalization Category [place] [id number] Stat Cat Scan 11/06/22 19:[address] head wo con* [id number] Stat Cat Scan 11/06/22 15:48 Completed XR chest 1V portable [id number] Stat Exams 11/06/22 16:49 Completed Radiology Impressions Head CT 11/06/22 15:48 IMPRESSION: No acute intracranial abnormality. Chronic microvascular ischemic changes. Chest X-Ray 11/06/22 16:49 IMPRESSION: No acute findings. Intact appearing pacemaker/AICD hardware. Chest/Abdomen/Pelvis CT 11/06/22 19:36 IMPRESSION: 1. Bibasilar left greater than right atelectasis versus infiltrate. 2. Right-sided pacemaker. 3. Coronary artery atherosclerotic calcifications. 4. Enlarged mediastinal lymph nodes measuring up to 17 mm. 5. Cardiomegaly. 6. Emphysematous changes. IMPRESSION: 1. Negative for focal acute inflammatory process in the abdomen or pelvis. 2. Cholecystectomy. 3. Constipation. 4. Small to moderate umbilical hernia containing omentum without bowel. 5. Diverticulosis without diverticulitis. 6. Salas catheter in the urinary bladder with air presumed iatrogenic. 7. Prostate gland enlarged. Laboratory Results WBC 5.07 10^3/uL (3.29-11.43) 11/07/22 01:49 RBC 3.66 10^6/uL (3.85-5.65) L 11/07/22 01:49 Hgb 10.20 g/dL (11.27-16.99) L 11/07/22 01:49 Hct 31.9 % (37-53) L 11/07/22 01:49 MCV 87.2 fl (82-101) 11/07/22 01:49 MCH 27.9 pg (27-33) 11/07/22 01:49 MCHC 32.0 g/dL (30-55) 11/07/22 01:49 RDW 17.6 % (12.1-15.1) H 11/07/22 01:49 Plt Count 206 10^3/cmm (157-399) 11/07/22 01:49 MPV 8.7 fL (7.4-10.4) 11/07/22 01:49 Neut % (Auto) 73.2 % 11/07/22 01:49 Lymph % (Auto) 5.7 % 11/07/22 01:49 [place] % (Auto) 16.4 % 11/07/22 01:49 Eos % (Auto) 3.7 % 11/07/22 01:49 Baso % (Auto) 0.6 % 11/07/22 01:49 Neut # (Auto) 3.71 10^3/uL (1.8-7.7) 11/07/22 01:49 Lymph # (Auto) 0.3 10^3/uL (0.8-4.8) L 11/07/22 01:49 [place] # (Auto) 0.8 10^3/uL (0.2-0.9) 11/07/22 01:49 Eos # (Auto) 0.2 10^3/uL (0.0-0.8) 11/07/22 01:49 Baso # (Auto) 0.0 10^3/uL (0.0-0.1) 11/07/22 01:49 Nucleated RBC % (auto) 0 % 11/07/22 01:49 Nucleated RBCs # 0.0 /100WBC 11/07/22 01:49 Sodium 137 mmol/L (136-145) 11/07/22 01:49 Potassium 4.5 mmol/L (3.5-5.1) 11/07/22 01:49 Chloride 104 mmol/L (98-107) 11/07/22 01:49 Carbon Dioxide 19 mmol/L (22-29) L 11/07/22 01:49 Anion Gap 18.5 (5-19) 11/07/22 01:49 BUN 98 mg/dL (8-23) H* 11/07/22 01:49 Creatinine 5.2 mg/dL (0.7-1.2) H 11/07/22 01:49 GFR Calculation Not Reportable 11/07/22 01:49 Glucose 87 mg/dL (65-115) 11/07/22 01:49 POC Glucose 141 mg/dL (70-110) H 11/07/22 00:14 Estimat Average Glucose 94 11/06/22 19:42 Hemoglobin A1c 4.9 % (4.0-6.0) 11/06/22 19:42 Calculated Osmolality 314 mOsm/kg (285-295) H 11/07/22 01:49 Lactic Acid 1.2 mmol/L (0.5-2.2) 11/06/22 19:42 Calcium 9.4 mg/dL (8.5-10.5) 11/07/22 01:49 Phosphorus 3.8 mg/dL (2.5-4.5) 11/07/22 01:49 Magnesium 2.0 mg/dL (1.7-2.3) 11/07/22 01:49 Total Bilirubin 0.7 mg/dL (0.15-1.2) 11/07/22 01:49 Direct Bilirubin 0.40 mg/dL (0.00-0.30) H 11/06/22 19:42 AST 23 U/L (0-40) 11/07/22 01:49 ALT < 5 U/L (0-41) 11/07/22 01:49 Alkaline Phosphatase 77 U/L (40-130) 11/07/22 01:49 Ammonia 10 umol/L (16-60) L 11/06/22 17:07 Creatine Kinase 1092 U/L (39-308) H* 11/06/22 19:42 Troponin T Baseline 114 ng/L (0-15) H* 11/06/22 19:42 Troponin T 120 Minute 102.0 ng/L (0-15) H 11/06/22 21:43 Delta Troponin T -12.0 ABS# (0-10) L 11/06/22 21:43 Troponin T Hi Sens 6Hr 96.60 ng/L (0-15) H 11/07/22 01:49 Troponin T Hi Sens 6Hr Delta -17.40 ng/L (0-12) L 11/07/22 01:49 C-Reactive Protein 279.6 mg/L (0.0-4.9) H 11/06/22 19:42 NT-Pro-B Natriuret Pep 26175 pg/mL (0-125) H 11/06/22 19:42 Total Protein 5.7 g/dL (6.6-8.7) L 11/07/22 01:49 Albumin 3.1 g/dL (3.5-5.2) L 11/07/22 01:49 Globulin 2.6 g/dL (1.3-4.6) 11/07/22 01:49 Lipase 23 U/L (13-60) 11/06/22 19:42 Procalcitonin 0.69 ng/mL (0-0.5) H 11/06/22 19:42 TSH 0.42 uIU/mL (0.27-4.20) 11/06/22 19:42 Urine Color Yuli (Yellow) 11/06/22 17:19 Urine Appearance Clear (CLEAR) 11/06/22 17:19 Urine pH 5 (5-7) 11/06/22 17:19 Ur Specific Binger 1.020 (1.005-1.030) 11/06/22 17:19 Urine Protein 1+ (Negative) H 11/06/22 17:19 Urine Glucose (UA) Norm (Normal) 11/06/22 17:19 Urine Ketones 1+ (Negative) H 11/06/22 17:19 Urine Blood 2+ (Negative) H 11/06/22 17:19 Urine Nitrate Negative (Negative) 11/06/22 17:19 Urine Bilirubin 1+ (Negative) H 11/06/22 17:19 Urine Urobilinogen 1 mg/dL (Negative) H 11/06/22 17:19 Ur Leukocyte Esterase Negative (Negative) 11/06/22 17:19 Urine RBC Rare /hpf (0-2) 11/06/22 17:19 Urine WBC Rare /hpf (0-5) 11/06/22 17:19 Ur Squamous Epith Cells 5-10 /hpf (0-5) H 11/06/22 17:19 Amorphous Sediment Not Reportable 11/06/22 17:19 Urine Bacteria Trace /hpf (NONE) 11/06/22 17:19 Salicylates 1.1 mg/dL (3-10) L 11/06/22 15:05 Acetaminophen < 5.0 ug/mL (10-30) L 11/06/22 15:05 Ethyl Alcohol < 10 mg/dL (0-10) 11/06/22 15:05 Vitals Last Vital Signs Temp 97.6 F 11/07/22 07:42 Pulse 88 11/07/22 07:42 Resp 18 11/07/22 07:42 BP 94/58 11/07/22 07:42 Pulse Ox 93 11/07/22 07:42 O2 Del Method Room Air 11/07/22 04:04 Discharge Plan Discharge Patient Disposition: Hospice - Medical Facility Condition: Serious Prescriptions: Continued acetaminophen 325 mg Tablet 325 mg PO QID PRN (Reason: Pain) hydrocodone-acetaminophen 5-325 mg tablet 1 tab PO QID PRN (Reason: Pain) aspirin 81 mg tablet,delayed release (DR/EC) 81 mg PO DAILY Dulcolax (bisacodyl) 10 mg Suppository See Rx Instructions .ROUTE .COMPLEX PRN (Reason: Constipation) Rx Instructions: 10 mg rectally as needed if no bm for 3 days. Changed furosemide 20 mg tablet 20 mg PO DAILY PRN (Reason: Edema) Qty: 30 0RF Discontinued famotidine 20 mg tablet 20 mg PO DAILY amiodarone 100 mg tablet 50 mg PO DAILY metoprolol tartrate 25 mg tablet 12.5 mg PO BID Discharge Orders: Discharge Order (Routine); Ordered 11/07/22 Ordered By: Jameson Levin Patient Instructions: Hospice Care (GEN) Activity Restrictions/Additional Instructions: comfort diet. activity as tolerated Call hospice when change in status and have them see patient prior to transport to hospital. His change in status was due to his chronic illness/hospice diagnoses. Plan of Treatment: Return on hospice. stop metoprolol and use lasix prn. Pt appears to be actively dying May only require comfort meds. currently without pain or other symptoms at this time. Goals: with dignity and respect with at his bedside Discharge Attestations Time Spent in Discharge Care*: greater than 30 min Quality Metrics Clinical Quality Measures [ No reported AMI, CVA or VTE this stay] Coding Level of Care Code Acute Code for Chg Fwd Diagnoses Acute kidney injury N17.9 Rhabdomyolysis M62.82 Depletion of volume of plasma E86.1 Dysphagia as late effect of cerebral aneurysm I69.891 CKD (chronic kidney disease) N18.9 End-stage systolic heart failure I50.20 CKD (chronic kidney disease) stage 4, GFR 15-29 ml/min N18.4 CAD (coronary artery disease) I25.10 CVA (cerebral vascular accident) I63.9 Atrial fibrillation I48.91 ARF (acute renal failure) N17.9 Hypotension I95.9 Encephalopathy G93.40 Hyperkalemia E87.5 Uremia N19 Protein calorie malnutrition E46 Physical deconditioning R53.81 Cachexia R64 Hospice care patient Z51.5 Goals of care, counseling/discussion Z71.89 NSTEMI (non-ST elevated myocardial infarction) I21.4
--- NOTE | 2022-11-07 14:30 | PC.NURSE ---
Patient's daughter Kirti is transporting patient back to [facility]. Harish Duke cancelled.
== END 2022-11-07 14:30 | disposition hospice, inpatient (51) ==
LOC: ER 18:29 → MEDSURG 20:27
PROVIDERS: Admitting Provider Family Medicine; Emergency Provider Emergency Medicine; Visit Provider Internal Medicine
DX: N17.9 Acute kidney failure, unspecified (principal); M62.82 Rhabdomyolysis; E86.1 Hypovolemia; I69.891 Dysphagia following other cerebrovascular disease; I50.84 End stage heart failure; N18.4 Chronic kidney disease, stage 4 (severe); I25.10 Atherosclerotic heart disease of native coronary artery without angina pectoris; I69.991 Dysphagia following unspecified cerebrovascular disease; I48.91 Unspecified atrial fibrillation; I95.9 Hypotension, unspecified; G93.40 Encephalopathy, unspecified; E87.5 Hyperkalemia; E46 Unspecified protein-calorie malnutrition; Z68.24 Body mass index [BMI] 24.0-24.9, adult; R53.81 Other malaise; R64 Cachexia; Z51.5 Encounter for palliative care; Z71.89 Other specified counseling; Z66 Do not resuscitate; Z91.81 History of falling; K42.9 Umbilical hernia without obstruction or gangrene; K59.00 Constipation, unspecified; K57.30 Diverticulosis of large intestine without perforation or abscess without bleeding; N40.0 Benign prostatic hyperplasia without lower urinary tract symptoms; F03.90 Unspecified dementia, unspecified severity, without behavioral disturbance, psychotic disturbance, mood disturbance, and anxiety; Z95.0 Presence of cardiac pacemaker; I25.2 Old myocardial infarction
CPT/HCPCS: 36415; 36416; 70450; 71045; 71250; 74176; 80048; 80053; 80076; 80307; 81001; 82140; 82550; 82962; 83036; 83605; 83690; 83735; 83880; 84100; 84145; 84443; 84484; 85025; 86140; 92523; 92610; 93005; 94664; 96361; 96372; 96374; 96375; 99285; C9113; G0378; J0456; J0696; J1644; J1815; J7030; J7040; J7042; J7050